=== PATIENT | female | born 1995 | race Caucasian/White ===

== ENCOUNTER 2019-04-22 13:23 | Outpatient (CLI) | payer BC, SELFPAY ==
--- NOTE | 2019-04-22 | XR_ITS ---
WS: [id number] Lumbar spine, 5 views including lateral views on flexion and extension, 04/22/2019 Clinical Data: WEAKNESS OF BOTH EXTREMITIES Comparison: None. Findings: No compression fractures or subluxation is seen. No disc space narrowing is seen. The transverse proc esses and SI joints are normal. No limitation of motion or subluxation on flexion or extension is seen. There are clips in the right upper quadrant from a cholecystectomy. There is a large amount of fecal material throughout the colon . XR/XR lumbar spine min 4V [id number] Impression: Negative the lumbar spine including no subluxation or limitation of motion on f lexion or extension.
--- NOTE | 2019-04-22 | XR_ITS ---
WS: [id number] Cervical spine, 5 views including flexion and extension lateral views, 04/22/2019 Clinical Data: WEAKNESS OF BOTH EXTREMITIES Comparison: Cervical spine x-ray, 07/15/2009 Findings: No compression fractures are seen. The disc heights are normal. There is no prevertebral so ft tissue swelling. The odontoid is unremarkable. The soft tissues of the neck and the lung apices ar e normal. No limitation of motion on flexion or extension could be seen. There was no subluxation. XR/XR cervical spine 4-5V [id number] Impression: Negative cervical spine including no limitation of motion or subluxation on fle xion or extension.
== END 2019-04-22 13:24 | disposition home or self-care (01) ==
LOC: RADOUTREAD 04-23 09:13
PROVIDERS: Family Provider Internal Medicine; PCP Internal Medicine; Referring Provider Internal Medicine; Visit Provider Internal Medicine
DX: R29.898 Other symptoms and signs involving the musculoskeletal system (principal)

== ENCOUNTER 2020-02-06 09:35 | Outpatient (CLI) | payer MEDICAID, BC, SELFPAY ==
[2020-02-06] VITALS (12 sets, daily range): BP systolic 115–125; BP diastolic 67–79; PULSE 76–94; RESP 16; TEMP 36; O2SAT 98–99; BMI 32.4
== END 2020-02-06 10:35 | disposition home or self-care (01) ==
LOC: OPOB 09:39 → OBGYN 09:40
PROVIDERS: Family Provider Internal Medicine; PCP Internal Medicine; Visit Provider Family Medicine
DX: O16.9 Unspecified maternal hypertension, unspecified trimester (principal); Z3A.00 Weeks of gestation of pregnancy not specified
CPT/HCPCS: 59025; 99211

== ENCOUNTER 2020-02-07 15:23 | Outpatient (CLI) | payer MEDICAID, SELFPAY ==
[2020-02-07] VITALS (20 sets, daily range): BP systolic 0–131; BP diastolic 0–87; PULSE 67–80; RESP 16–18; TEMP 36.6–37; BMI 31.9
[2020-02-07 17:25] LABS: Total Volume, Urine 1450 mL
[2020-02-07 19:33] LABS: Total Protein 24 Hour Urine 134.9 mg/24HR (0-150); Urine Total Protein 24 Hour 9.3 mg/dL (0-150)
== END 2020-02-07 19:29 | disposition home or self-care (01) ==
LOC: OPOB 15:23 → OBGYN 19:26
PROVIDERS: PCP Internal Medicine; Visit Provider Family Medicine
DX: O24.419 Gestational diabetes mellitus in pregnancy, unspecified control (principal); Z3A.00 Weeks of gestation of pregnancy not specified
CPT/HCPCS: 59025; 84156; 99211

== ENCOUNTER 2020-02-12 05:27 | Inpatient (IN) | payer MEDICAID, SELFPAY ==
[2020-02-12] VITALS (23 sets, daily range): BP systolic 104–140; BP diastolic 41–83; PULSE 83–113; RESP 14–18; TEMP 36.5–37.5; O2SAT 95–100; BMI 31.8
[2020-02-12 06:09] LABS: Basophils # 0.1 10^3/uL (0.0-0.1); Basophils % 0.8 %; Eosinophils % 0.3 %; Hematocrit 31.3 % (37.0-47.0); Hemoglobin 9.3 g/dL (11.5-15.3); Lymphocytes # 1.6 10^3/uL (0.8-4.8); Lymphocytes % 20.3 %; Mean Corpuscular HGB Conc 29.7 g/dL (30.0-36.0); Mean Corpuscular Hemoglobin 22.5 pg (28.0-34.0); Mean Corpuscular Volume 75.8 fL (81-99); Mean Platelet Volume 12.7 fL (7.4-10.4); Monocytes # 0.6 10^3/uL (0.2-0.9); Monocytes % 6.9 %; Neutrophils # 5.62 10^3/uL (1.8-7.7); Neutrophils % 70.3 %; Nucleated Red Blood Cells % 0 %; Platelet Count 191 10^3/cmm (130-400); Red Blood Count 4.13 10^6/uL (4.1-5.3)
[2020-02-12] MEDS: ondansetron 2 mg/ML SDV 2 mL 4 MG IVP (06:43)
[2020-02-12] MEDS: lactated ringers 1,000 ML 999 ML IV (06:43)
--- NOTE | 2020-02-12 07:17 | ANES.PREANE2 ---
Pre-Anesthetic Assessment Pre-Anesthetic Assessment: Height/Weight: Height 1.68 m Weight 89.358 kg Pulse Resp BP 83 18 120/75 02/12/20 07:01 02/12/20 05:51 02/12/20 07:01 Proposed Procedure: Operation Date: 02/12/20 07:30 Proposed Procedures p Section Repeat With Tubal(Not Applicable) - Kathryn Rivera MD Was Beta Tri taken within 24 hours: N/A Exam: Pre-Anes Outpt Exam: alert, oriented x 3, clear to auscultation bilaterally and regular rate & rhythm Airway: Submandibular: WNL Cervical ROM: WNL MP: 2 Dentition: Full History/ROS: No significant history except as noted and No significant complaints Pulmonary: Pulmonary: None reported CV/HEM: CV/HEM: None reported : : None reported Hepatic: Hepatic: None reported GI: Comments: Symptoms developed at 1 am N/V and diarrhea. No fever Metabolic: Metabolic: None reported Musc/skel: Musc/skel: None reported Neuropsych: Neuropsych: None reported Anesthetic Plan: ASA status: 2 Anesthesia: Regional (specify below) Risk of > 500 ml blood loss (7ml/kg in children): No PFSH Anesthesia PFSH: Social History (Updated 02/07/20 @ 17:06 by Lyudmila Juárez RN) Smoking and tobacco status: unknown if ever smoked Alcohol intake: unknown Female Reproductive History: : 4 Data Anesthesia CBC & Chem 7: 02/12/20 05:55 Other Labs: Laboratory Results - last 48 hr 02/12/20 05:55 WBC 8.0 RBC 4.13 Hgb 9.3 L Hct 31.3 L MCV 75.8 L MCH 22.5 L MCHC 29.7 L RDW 15.0 Plt Count 191 MPV 12.7 H Neut % (Auto) 70.3 Lymph % (Auto) 20.3 [place] % (Auto) 6.9 Eos % (Auto) 0.3 Baso % (Auto) 0.8 Neut # (Auto) 5.62 Lymph # (Auto) 1.6 [place] # (Auto) 0.6 Eos # (Auto) 0.0 Baso # (Auto) 0.1 Nucleated RBC % (auto) 0 Nucleated RBCs # 0.0 Cardiac Studies: No Data to Display
[2020-02-12] MEDS: metoclopramide 5 mg/mL SDV 2 mL 10 MG IVP (07:22)
[2020-02-12] MEDS: citric acid-sodium citrate 30 mL UDC PO (07:23)
[2020-02-12] MEDS: famotidine 20 mg/2 mL INJ IVP (07:23)
[2020-02-12 07:42] LABS: SARS Covid-2 Antigen Negative (Negative)
[2020-02-12] MEDS: diphenhydrAMINE 50 mg/mL SDV 1mL 25 MG IVP (11:33)
[2020-02-12] MEDS: ketorolac 30 mg/mL INJ IVP ×3 (11:34→22:26)
--- NOTE | 2020-02-12 12:00 | PM.OP ---
Operative Report Date of procedure: February 12, 2020 Pre-op Diagnosis: IUP at 39 weeks gestation History of prior section Desired permanent surgical sterilization Post-op diagnosis: same Procedure Done: Repeat low transverse section Via Pfannenstiel skin incision Bilateral tubal ligation Specimens removed/disposition: Vertex male infant weight 3160 g, Apgars 9 and 10. Segments of right and left fallopian tubes Pathology: Segments of right and left fallopian tubes Anesthesia: Other (Spinal) Estimated blood loss (mL): 400 IV fluids (mL): 1,500 Urine output (mL): 300 Complications: None Condition: stable Disposition: floor Procedure: After informed consent the patient was taken to the OR where she was administered spinal anesthesia. She was prepped and draped in normal sterile fashion in dorsal supine position with a left lateral tilt. She had a prior Pfannenstiel incision scar that was slightly keloid so this was removed. The incision was then carried down to the underlying layer of fascia sharply. The fascial incision was extended laterally using the Mayos. The fascia was then grasped with Anisa clamps and the underlying rectus muscles were dissected off taking care to avoid injury to the underlying tissue. The peritoneum was entered bluntly and the incision site was stretched manually. The bladder blade was inserted. The vesicouterine peritoneum was entered sharply using the Metzenbaums and the bladder flap was created digitally. The bladder blade was then reinserted. Uterine incision was made in a transverse fashion in the lower uterine segment. Amniotic rupture of membranes was performed using an Allis clamp and there was clear fluid. The was delivered atraumatically with bulb suction of the mouth and nares after delivery. The cord was clamped and cut and the was handed to the waiting pediatric nurse. Cord blood was obtained. The placenta was then delivered using fundal pressure. The uterus was then exteriorized from the abdomen and a dry sponge was used to clear the uterus of clots and debris. The uterine incision was then repaired using 0 chromic in a running locked fashion. A second layer of the same suture was used in an imbricating manner. There was excellent hemostasis. The right fallopian tube was then grasped with a Kacie and a proximal portion of the tube was ligated and excised. Specimen was sent to pathology. Ostia were identified. The cut portions of the tube were coagulated using the Bovie. The same procedure was then performed on the left side. Again ostia were identified and specimen was sent to pathology. The cut portions of the tube were coagulated using the Bovie. The uterus was then returned to the abdomen and irrigation was used to clear the gutters of clots and debris. The uterine incision was reinspected for hemostasis. The peritoneum was then reapproximated using 4-0 Vicryl in a running fashion. The subfascial tissue was inspected for hemostasis and any small bleeders were coagulated using the Bovie. The fascia was then reapproximated using 0 Vicryl in a running fashion. On the right aspect of the incision the subfascial tissue was loosened using the Bovie. There was some question about whether or not it affected the Vicryl knot with the fascia. For this reason another 0 Vicryl was used in a running manner from the right aspect of the incision taken to past the midline. The subcutaneous tissue was then irrigated and any small bleeders were coagulated using the Bovie. The subcutaneous tissue was then reapproximated using 4-0 Vicryl. The skin was then reapproximated using 4-0 Vicryl on a Abdi needle. Steri-Strips and a pressure bandage were applied. Patient went to recovery in stable condition. Sponge instrument and needle counts were correct Associated Problem List Diagnoses (1) with 39 completed weeks gestation: (2) History of section, low transverse: (3) Request for sterilization:
--- NOTE | 2020-02-12 12:10 | P.HP_ITS ---
Providers/Chief Complaint Admitting Physician: Kathryn Rivera MD Primary Care Provider: Marlon Moreno DO Chief Complaint: scheduled csection History of Present Illness Venice Persaud is a 24 year old female G3, P2 at 39 weeks gestation who is here for a scheduled repeat section and bilateral tubal ligation Review of Systems Const: Denies: fever(s), chills or body aches Eyes: Denies: change in vision or blurry vision ENMT: Denies: throat pain Card: Denies: chest pain or irregular heart rhythm Resp: Denies: dyspnea, productive cough or wheezing GI: Reports: vomiting (Started english language arts teacher hours she believes secondary to bad tacos), diarrhea and GI cramping; Denies: hematochezia : Denies: flank pain or difficulty voiding Neuro: Denies: headache(s) or sensory changes Psych: Denies: anxiety or depression Medications/Allergies Home Medications Medication Instructions Recorded Confirmed Last Taken Type Vitamin 1 tab PO DAILY 02/07/20 02/07/20 02/05/20 History ferrous sulfate [iron] 325 mg PO DAILY 02/07/20 02/07/20 02/05/20 History docusate sodium 100 mg PO BID #60 cap 02/14/20 Unknown Rx hydrocodone-acetaminophen 1 - 2 tab PO Q4H PRN #15 tab 02/14/20 Unknown Rx ibuprofen 800 mg PO TID PRN #30 tab 02/14/20 Unknown Rx Allergies Allergy/AdvReac Type Severity Reaction Status Date / Time clindamycin Allergy Unknown ADR-Vomitin Verified 02/07/20 17:02 g PFSH Acute PFSH: Social History (Updated 02/07/20 @ 17:06 by Lyudmila Juárez RN) Smoking and tobacco status: unknown if ever smoked Alcohol intake: unknown Female Reproductive History: : 4 Vitals/I&O/Wt Last Vital Signs Temp 98.2 F 02/12/20 10:55 Pulse 107 H 02/12/20 10:55 Resp 16 02/12/20 10:55 BP 114/77 02/12/20 10:55 Pulse Ox 100 02/12/20 10:55 02/11/20 02/12/20 02/12/20 22:59 06:59 14:59 Output Total 300 / 300 Balance -300 / -300 Weight last 48 hrs Weight 197 lb Weight 197 lb Physical Exam HENMT: COMMON NORMALS: normocephalic and atraumatic FACE & SINUS: normal facial exam Eye: COMMON NORMALS: Equal, round and reactive pupils present and EOMs intact bilaterally Chest: COMMONS NORMALS: normal inspection of the chest Resp: COMMON NORMALS: normal respiratory effort and No retractions Cardio: COMMON NORMALS: regular rate and regular rhythm GI: COMMON NORMALS: non-tender Extremity: COMMON NORMALS: no calf tenderness and no pedal edema Neuro: COMMON NORMALS: patient oriented x3 Psych: COMMON NORMALS: mental status grossly normal and Normal thought process present Urinary Catheter Management^: Ocampo Latex: Cath Placed During This Visit: yes Reason for Continuing Indwelling Catheter: Required Immobilization for Trauma or Surgery or Anesthesia Urinary Catheter Date of Insertion: 02/12/20 Urinary Catheter Time of Insertion: 07:55 Data : 02/12/20 22:30 A&P Assessment and plan (1) with 39 completed weeks gestation: Status: Acute (2) History of section, low transverse: We plan to proceed with repeat section Status: Resolved (3) Request for sterilization: Patient still desires bilateral tubal ligation Status: Resolved (4) Nausea vomiting and diarrhea: Patient has not had fever or cough however we need to consider this could be Covid symptoms. For that reason she will be taken to the OR downstairs and treated as if Covid positive. She did have a rapid Covid performed here this morning that was negative. Status: Resolved Attestations Medical Necessity Statement*: routine surgery and postoperative care Coding Level of Care Code Acute Process Steward for [facility] Fwd Exam Comprehensive Diagnoses with 39 completed weeks gestation Z3A.39 History of section, low transverse Z98.891 Request for sterilization Z30.2 Nausea vomiting and diarrhea R11.2; R19.7
[2020-02-12] MEDS: dextrose 5%-lactated ringers 1,000 ML 125 ML IV (14:07)
[2020-02-12] MEDS: sodium chloride 0.9% 500 ML 999 ML IV (15:49)
[2020-02-12] MEDS: ferrous sulfate EC 325 mg Tablet PO (17:26)
[2020-02-12 22:56] LABS: Hematocrit 25.3 % (37.0-47.0); Hemoglobin 7.6 g/dL (11.5-15.3); Mean Corpuscular Volume 76.4 fL (81-99); Mean Platelet Volume 13.6 fL (7.4-10.4); Platelet Count 137 10^3/cmm (130-400); Red Blood Count 3.31 10^6/uL (4.1-5.3); White Blood Count 5.9 10^3/uL (4.0-10.0)
[2020-02-13 04:06] VITALS: BP 107/67; PULSE 80; RESP 18; TEMP 37.1
[2020-02-13] MEDS: ketorolac 30 mg/mL INJ IVP (06:00)
[2020-02-13 06:40] LABS: Coronavirus Lab Test PTC Negative
[2020-02-13 06:47] VITALS: BP 110/70; PULSE 90; RESP 18
[2020-02-13] MEDS: ferrous sulfate EC 325 mg Tablet PO (08:53)
[2020-02-13] MEDS: prenatal vitamin Capsule 1 CAP PO (08:53)
[2020-02-13 08:55] VITALS: BP 105/69; PULSE 103; RESP 16; TEMP 36.9
--- NOTE | 2020-02-13 09:02 | ANE.PACU2 ---
Inpatient post-anesthesia follow up: Airway intact: Yes Vital signs: Temperature 98.8 F Pulse Rate 90 Respiratory Rate 18 Blood Pressure 110/70 Pulse Oximetry 96 Oxygen Delivery Me thod Room Air Oxygen Flow Rate Fraction of Inspir ed Oxygen Hydration adequate: Yes Nausea and vomiting: No Pain level: 2 Mental status: Baseline Additional Comments: No headaches, no signs of infection at neuraxial site, no residual numbness/weakness in legs, patient up and walking, urinating without hutson
[2020-02-13] MEDS: ibuprofen 800 mg tablet PO ×2 (16:08→21:30)
[2020-02-13 16:10] VITALS: BP 112/65; PULSE 96; RESP 16; TEMP 36.8
--- NOTE | 2020-02-13 17:19 | PM.PN ---
Subjective Subjective: Interval history: Postop day #1 repeat section with bilateral tubal ligation. The patient is doing well. She has only been taking ibuprofen pain medication. Vitals/I&O/Wt Last Vital Signs Temp 98.4 F 02/13/20 08:55 Pulse 103 H 02/13/20 08:55 Resp 16 02/13/20 08:55 BP 105/69 02/13/20 08:55 Pulse Ox 96 02/12/20 19:56 02/13/20 02/13/20 02/13/20 06:59 14:59 22:59 Intake Total 500 / 1260 Output Total 600 / 2990 900 / 900 Balance -100 / -1730 -900 / -900 Weight last 48 hrs Weight 197 lb Weight 197 lb Physical Exam HENMT: COMMON NORMALS: normocephalic and atraumatic HEAD & SCALP: normocephalic and atraumatic Eye: COMMON NORMALS: Equal, round and reactive pupils present PUPIL: Yes Equal, round and reactive pupils present Chest: COMMONS NORMALS: normal inspection of the chest Resp: COMMON NORMALS: clear to auscultation bilaterally AUSCULTATION: clear to auscultation bilaterally Cardio: COMMON NORMALS: regular rate and regular rhythm RATE: regular rate RHYTHM: regular rhythm GI: COMMON NORMALS: Normal to inspection, nondistended, normoactive bowel sounds present and Soft to palpation (Fundus firm U- 2) INSPECTION: Yes other (Incision clean dry and intact) PALPATION: Yes Soft to palpation (Fundus firm U- 2) and Yes Tenderness to palpation present (GI) (Minimal appropriate postoperative) Extremity: COMMON NORMALS: no calf tenderness GENERAL: Yes edema Urinary Catheter Management^: Ocampo Latex: Cath Placed During This Visit: yes, but has since been removed by the nurse Reason for Continuing Indwelling Catheter: Decision to DC Catheter Urinary Catheter Date of Insertion: 02/12/20 Urinary Catheter Time of Insertion: 07:55 Date Urinary Catheter Removed: 02/12/20 Time Urinary Catheter Discontinued: 22:46 Data : 02/12/20 22:30 A&P Assessment and plan (1) Status post repeat low transverse section: Routine postoperative care. Patient is doing well. Likely discharge home tomorrow. Status: Acute (2) History of bilateral tubal ligation: Status: Acute Attestations Medical Necessity Statement*: Routine postoperative care Coding Level of Care Code Acute Operational Trainer for [facility] Fwd Diagnoses Status post repeat low transverse section Z98.891 History of bilateral tubal ligation Z98.51
[2020-02-13 21:30] VITALS: BP 110/70; PULSE 88; RESP 16; TEMP 36.8
[2020-02-14 04:45] VITALS: BP 105/69; PULSE 78; RESP 16; TEMP 36.7; O2SAT 97
[2020-02-14] MEDS: docusate sodium 100 mg Capsule PO (09:04)
[2020-02-14] MEDS: ferrous sulfate EC 325 mg Tablet PO (09:04)
[2020-02-14] MEDS: prenatal vitamin Capsule 1 CAP PO (09:04)
[2020-02-14] MEDS: ibuprofen 800 mg tablet PO (09:04)
--- NOTE | 2020-02-14 10:46 | P.DS_ITS ---
Discharge Providers HANDBAG DESIGNER Date of Admission: 02/12/20 05:27 Date of Discharge: 02/14/20 Attending Provider at Admission: Kathryn Rivera MD Attending Provider at Discharge: Kathryn Rivera MD Primary Care Provider: Marlon Moreno DO Diagnoses at Discharge Discharge Diagnosis (1) Status post repeat low transverse section: Status: Acute (2) History of bilateral tubal ligation: Status: Acute Reason for Visit Reason for Visit: scheduled csection Hospital Course Hospital Course: This is a 24-year-old G4 now P3 who was admitted for repeat section and bilateral tubal ligation. There were no complications with the procedures. She did well postoperatively. She was ambulating, tolerating a regular diet, had good pain control on just ibuprofen and was comfortable with discharge home. Information Peripartum Data: Infant Delivery Method: Section Physical Exam Const: COMMON NORMALS: no acute distress HENMT: COMMON NORMALS: normocephalic HEAD & SCALP: normocephalic FACE & SINUS: normal facial exam Chest: COMMONS NORMALS: normal inspection of the chest Resp: COMMON NORMALS: normal respiratory effort and clear to auscultation bilaterally AUSCULTATION: clear to auscultation bilaterally Cardio: COMMON NORMALS: regular rate and regular rhythm RATE: regular rate RHYTHM: regular rhythm GI: COMMON NORMALS: Normal to inspection, nondistended, normoactive bowel sounds present and Soft to palpation PALPATION: Yes Soft to palpation and Yes Tenderness to palpation present (GI) (Minimal postoperative) Extremity: COMMON NORMALS: no calf tenderness GENERAL: No edema Urinary Catheter Management^: Ocampo Latex: Cath Placed During This Visit: yes, but has since been removed by the nurse Reason for Continuing Indwelling Catheter: Decision to DC Catheter Urinary Catheter Date of Insertion: 02/12/20 Urinary Catheter Time of Insertion: 07:55 Date Urinary Catheter Removed: 02/12/20 Time Urinary Catheter Discontinued: 22:46 Discharge Data Data Completed and Pending: Completed Studies During Hospitalization Category Date Time Status Pathology: Surgic al [PTH] Routine Pth 02/12/20 12:20 Completed Vitals: Last Vital Signs Temp 98.0 F 02/14/20 04:45 Pulse 78 02/14/20 04:45 Resp 16 02/14/20 04:45 BP 105/69 02/14/20 04:45 Pulse Ox 97 02/14/20 04:45 Discharge Plan Discharge Patient Disposition: Home Condition: Stable Prescriptions: New docusate sodium 100 mg Capsule 100 mg PO BID Qty: 60 RF: 0 ibuprofen 800 mg Tablet 800 mg PO TID PRN (Reason: Abdominal Discomfort) Qty: 30 RF: 0 hydrocodone-acetaminophen 5-325 mg Tablet 1 - 2 tab PO Q4H PRN (Reason: Moderate To Severe Pain) Qty: 15 RF: 0 Continued ferrous sulfate [iron] 325 mg (65 mg iron) Tablet 325 mg PO DAILY RF: 0 Vitamin 27 mg iron- 800 mcg Tablet 1 tab PO DAILY RF: 0 Discharge Orders: Discharge Order (Routine); Ordered 02/14/20 Ordered By: Kathryn Rivera Referrals: Kathryn Rivera MD [Physician] - 1-3 days (appt with ) Discharge Diet: Usual diet Discharge Activity: Limit activity as instructed Patient Instructions: Bleeding (DC), OB - Jonatan/Miguel, OB Discharge Report, OB Food/Drug Interaction Guide, OB Home Care, OB Proud Parent Packet Discharge Attestations HANDBAG DESIGNER Time Spent in Discharge Care*: less than 30 min Coding Level of Care Code Acute Instrumentation Specialist for [facility] Fwd Diagnoses Status post repeat low transverse section Z98.891 History of bilateral tubal ligation Z98.51
[2020-02-14 11:40] VITALS: BP 131/87; PULSE 91; RESP 17; TEMP 36.8
[2020-02-14 12:08] VITALS: BP 131/87; PULSE 91; RESP 17; TEMP 36.8
== END 2020-02-14 12:00 | disposition home or self-care (01) | DRG 785 ==
PROVIDERS: Admitting Provider Family Medicine; PCP Internal Medicine; Visit Provider Family Medicine
PROC: 0U570ZZ Destruction of Bilateral Fallopian Tubes, Open Approach (ICD-10-PCS; CPT 59514; principal; 2020-02-12 07:30)
DX: O34.211 Maternal care for low transverse scar from previous cesarean delivery (principal); Z3A.39 39 weeks gestation of pregnancy; Z37.0 Single live birth; O99.02 Anemia complicating childbirth; D50.9 Iron deficiency anemia, unspecified; O75.89 Other specified complications of labor and delivery; R11.2 Nausea with vomiting, unspecified; R19.7 Diarrhea, unspecified
CPT/HCPCS: 36415; 51702; 59409; 85025; 85027; 86850; 86900; 87426; 87635; 88302; 96375; J0690; J1200; J1885; J2274; J2370; J2405; J2765; J3010; J3490; J7040

== ENCOUNTER 2020-08-23 15:33 | Emergency (ER) | payer BC, MEDICAID, SELFPAY ==
[2020-08-23 15:54] VITALS: BP 119/81; PULSE 92; RESP 18; TEMP 37.1; O2SAT 100; BMI 29.9
--- NOTE | 2020-08-23 16:06 | ED_ITS ---
Documented by User: GARETH Borrego 08/24/20 07:08 HPI - General Adult General: Chief complaint: General Medical Stated complaint: HEADACHE, VOMITING, DIARRHEA Time Seen by Provider: 08/23/20 15:56 History of Present Illness: HPI narrative: 25-year-old female comes in today with cough, nasal congestion, and fever in the evenings since . Patient appears well. Patient appears no acute distress. Patient reports minimal to no improvement in symptoms. Patient was concerned for COVID-19. Patient works in a preschool. Onset (ago): day(s) Severity: mild Quality: dull Review of Systems General: Reports: 10 or more systems reviewed and unremarkable except in HPI and below Const: Reports: fever(s) ENMT: Reports: nasal congestion Resp: Reports: non-productive cough PFSH ED PFSH: Social History (Updated 02/07/20 @ 17:06 by Lyudmila Juárez RN) Smoking and tobacco status: unknown if ever smoked Alcohol intake: unknown Physical Exam Const: COMMON NORMALS: no acute distress and patient oriented x3 GENERAL APPEARANCE: cooperative HENMT: COMMON NORMALS: normocephalic, TM's normal bilaterally and Normal external nose present HEAD & SCALP: normal to inspection and normocephalic NOSE: Normal external nose present TYMPANIC MEMBRANE: TM's normal bilaterally MOUTH: Normal oral and palatal mucosa present THROAT: posterior oropharynx normal Eye: GENERAL EYE: appearance normal, both eyes and all related structures Neck/C-Spine: COMMON NORMALS: full ROM Lymph: LYMPHATIC: no lymphadenopathy noted Chest: COMMONS NORMALS: normal inspection of the chest Resp: COMMON NORMALS: normal respiratory effort and clear to auscultation bilaterally EFFORT & INSPECTION: Yes able to speak in complete sentences AUSCULTATION: clear to auscultation bilaterally Cardio: COMMON NORMALS: regular rate and regular rhythm RATE: regular rate RHYTHM: regular rhythm GI: COMMON NORMALS: non-tender Back/Pelvis: COMMON NORMALS: thoracic and lumbar spine normal to inspection Extremity: COMMON NORMALS: normal to inspection Neuro: COMMON NORMALS: patient oriented x3 and moves all extremities Psych: COMMON NORMALS: mental status grossly normal and cooperative Skin: COMMON NORMALS: no rashes or lesions noted GENERAL SKIN EXAM: no rashes or lesions noted Course ED course: 1699, reviewed with Jone Reyes, nurse practitioner, we are awaiting COVID-19 results. Patient has a viral upper respiratory infection illness for the last 3 days. 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 Stable continue care on my leave of shift. Vital Signs: Vital signs: Vital Signs Temperature 98.7 F 08/23/20 15:54 Pulse Rate 78 08/23/20 17:30 Respiratory Rate 18 08/23/20 17:30 Blood Pressure 119/81 08/23/20 15:54 Pulse Oximetry 98 08/23/20 17:30 MDM - General Adult MDM Narrative: Medical decision making narrative: Patient came in today with complaints of cough, nasal congestion, and fever at evening times. On exam we note posterior pharynx has some clear drainage, mild nasal mucosal swelling, lungs clear to auscultation, no lymphadenopathy. Differential diagnosis includes upper respiratory infection, viral syndrome, COVID-19. Lab Data: Labs: Lab Results 08/23/20 Range/Units 16:23 SARS-CoV-2 Ag (Rap id) Positive H (Negative) Discharge Plan Discharge Patient Disposition: Home Clinical Impression: COVID-19 Condition: Stable Prescriptions: No Action ferrous sulfate [iron] 325 mg (65 mg iron) Tablet 325 mg PO DAILY RF: 0 Vitamin 27 mg iron- 800 mcg Tablet 1 tab PO DAILY RF: 0 docusate sodium 100 mg Capsule 100 mg PO BID Qty: 60 RF: 0 ibuprofen 800 mg Tablet 800 mg PO TID PRN (Reason: Abdominal Discomfort) Qty: 30 RF: 0 hydrocodone-acetaminophen 5-325 mg Tablet 1 - 2 tab PO Q4H PRN (Reason: Moderate To Severe Pain) Qty: 15 RF: 0 Discharge Orders: Discharge ED (Routine); Ordered 08/23/20 Ordered By: Jone Reyes Referrals: Kathyrn Rivera MD [Primary Care Provider] - Discharge Diet: Usual diet Discharge Activity: Increase activity as tolerated Patient Instructions: Viral Syndrome (ED) Activity Restrictions/Additional Instructions: Self quarantine for 10 days from this past . Watch for signs and symptoms of worsening Covid. Monitor for acute shortness of breath dehydration or other related problems return to see your primary care provider return here i f worsening symptoms develop. Coding Level of Care Code ED Customer Service Attendant for [facility] Fwd Exam Comprehensive Documented by User: GARETH Lira 08/24/20 01:00 HPI - General Adult General: Chief complaint: General Medical Stated complaint: HEADACHE, VOMITING, DIARRHEA Time Seen by Provider: 08/23/20 15:56 PFSH ED PFSH: Social History (Updated 02/07/20 @ 17:06 by Lyudmila Juárez RN) Smoking and tobacco status: unknown if ever smoked Alcohol intake: unknown Course Vital Signs: Vital signs: Vital Signs Temperature 98.7 F 08/23/20 15:54 Pulse Rate 78 08/23/20 17:30 Respiratory Rate 18 08/23/20 17:30 Blood Pressure 119/81 08/23/20 15:54 Pulse Oximetry 98 08/23/20 17:30 MDM - General Adult MDM Narrative: Medical decision making narrative: Patient diagnosed with Covid. Patient self quarantine follow back up if she has any problems. Lab Data: Labs: Lab Results 08/23/20 Range/Units 16:23 SARS-CoV-2 Ag (Rap id) Positive H (Negative) Discharge Plan Discharge Patient Disposition: Home Clinical Impression: COVID-19 Condition: Stable Prescriptions: No Action ferrous sulfate [iron] 325 mg (65 mg iron) Tablet 325 mg PO DAILY RF: 0 Vitamin 27 mg iron- 800 mcg Tablet 1 tab PO DAILY RF: 0 docusate sodium 100 mg Capsule 100 mg PO BID Qty: 60 RF: 0 ibuprofen 800 mg Tablet 800 mg PO TID PRN (Reason: Abdominal Discomfort) Qty: 30 RF: 0 hydrocodone-acetaminophen 5-325 mg Tablet 1 - 2 tab PO Q4H PRN (Reason: Moderate To Severe Pain) Qty: 15 RF: 0 Discharge Orders: Discharge ED (Routine); Ordered 08/23/20 Ordered By: Jone Reyes Referrals: Kathryn Rivera MD [Primary Care Provider] - Discharge Diet: Usual diet Discharge Activity: Increase activity as tolerated Patient Instructions: Viral Syndrome (ED) Activity Restrictions/Additional Instructions: Self quarantine for 10 days from this past . Watch for signs and symptoms of worsening Covid. Monitor for acute shortness of breath dehydration or other related problems return to see your primary care provider return here if worsening symptoms develop. Coding Level of Care Code ED Customer Service Attendant for [facility] Exam Comprehensive
[2020-08-23 17:03] LABS: SARS Covid-2 Antigen Positive (Negative)
[2020-08-23 17:30] VITALS: PULSE 78; RESP 18; O2SAT 98
== END 2020-08-23 17:31 | disposition home or self-care (01) ==
PROVIDERS: Nurse Practitioner Family; Emergency Provider Nurse Practitioner Family; PCP Family Medicine
DX: U07.1 COVID-19 (principal)
CPT/HCPCS: 87426; 99282

== ENCOUNTER 2021-02-11 15:50 | Emergency (ER) | payer BC, MEDICAID, SELFPAY ==
[2021-02-11 17:19] VITALS: BP 131/87; PULSE 66; RESP 18; TEMP 36.7; O2SAT 100; BMI 23.3
[2021-02-11 19:06] LABS: Add Urine Microscopic? YES; Blood Urine 2+ (Negative); Glucose Urine UA Norm (Normal); Ketones Urine 2+ (Negative); Leukocyte Esterase Urine 1+ (Negative); Nitrate Urine Positive (Negative); Protein Urine 3+ (Negative); Urine Appearance Cloudy (CLEAR); pH Urine 5 (5-7)
[2021-02-11 19:08] LABS: RBC Urine 0-4 /hpf (0-2); Urine Color Orange (Yellow)
[2021-02-11 19:09] LABS: Add Urine Culture? Yes; Bacteria Urine 4+ /hpf; Squamous Epithelial Cell Urine 0-4 /hpf (0-5); WBC Urine TOO NUMEROUS TO CNT /hpf (0-5)
[2021-02-11] MEDS: cefTRIAXone 1,000 MG in sodium chloride 0.9% (plus) 50 ML 100 MG IV (21:10)
[2021-02-11 21:15] VITALS: BP 127/81; PULSE 67; RESP 16; O2SAT 100
--- NOTE | 2021-02-11 21:16 | PC.NURSE ---
Given water and sandwich for po challenge.
[2021-02-11 21:30] LABS: HCG, Serum Qual Negative (Negative)
[2021-02-11 21:32] LABS: Alanine Aminotransferase 8 U/L (0-33); Albumin Level 4.4 g/dL (3.5-5.2); Alkaline Phosphatase 73 IU/L (35-105); Anion Gap 14.1 (5-19); Aspartate Amino Transferase 12 U/L (0-32); Blood Urea Nitrogen 8 mg/dL (6-20); Calcium 9.2 mg/dL (8.5-10.5); Carbon Dioxide 25 mmol/L (22-29); Chloride 104 mmol/L (98-107); Globulin 2.7 g/dL (1.3-4.6); Glucose 73 mg/dL (65-115); Osmolality Calculated 287 mOsm/kg (285-295); Potassium 3.1 mmol/L (3.5-5.1); Sodium 140 mmol/L (136-145); Total Bilirubin 0.3 mg/dL (0.15-1.2); Total Protein 7.1 g/dL (6.6-8.7)
[2021-02-11 21:34] LABS: Basophils # 0.1 10^3/uL (0.0-0.1); Basophils % 0.9 %; Eosinophils # 0.1 10^3/uL (0.0-0.8); Hematocrit 34.3 % (37.0-47.0); Hemoglobin 10.2 g/dL (11.5-15.3); Lymphocytes # 2.7 10^3/uL (0.8-4.8); Lymphocytes % 40.2 %; Mean Corpuscular HGB Conc 29.7 g/dL (30.0-36.0); Mean Corpuscular Hemoglobin 22.6 pg (28.0-34.0); Mean Corpuscular Volume 76.1 fl (81-99); Mean Platelet Volume 12.6 fL (7.4-10.4); Monocytes # 0.5 10^3/uL (0.2-0.9); Monocytes % 6.7 %; Neutrophils # 3.45 10^3/uL (1.8-7.7); Neutrophils % 51.1 %; Nucleated Red Blood Cells % 0 %; Platelet Count 215 10^3/cmm (130-400); Red Blood Count 4.51 10^6/uL (4.1-5.3); Red Cell Distribution Width 17.2 % (12.1-15.1); White Blood Count 6.8 10^3/uL (4.0-10.0)
--- NOTE | 2021-02-11 21:34 | ED_ITS ---
HPI - General Adult General: Chief complaint: Urogenital-Female Stated complaint: LOW BACK PAIN, PAINFUL URINATION, LIMITED OUTPUT Time Seen by Provider: 02/11/21 20:41 History of Present Illness: HPI narrative: CC: Dysuria/flank pain HPI: [25] yo patient w/ hx of UTI, cholecystectomy presenting to the ED w/ symptoms of dysuria x 3 day now with b/l sided flank pain. Had mild gross hematuria on day 1. Patient is concerned that she is having kidney infectsion from her UTI. Patient denies nausea/vomiting, and fever. Patient has been able to tolerate Po today. Denies hx of pyelonephritis in the past. No hx of kidney stones. Patient denies diarrhea/melena/hematochezia, vaginal discharge/bleeding/ or cramps. No associated hx of kidney stones. Denies chest pain, SOB, and palpitations today. Onset: 3 days ago Duration: ongoing Location: home Severity: moderate Review of Systems Narrative: Constitutional: No fever, no chills. HEENT: No vision changes CV: No chest pain, no palpitations PULM: No productive cough, no dyspnea. GI: No abdominal pain, +N/+V/-D, +b/l flank pain. : +Dysuria/+hematuria MSKEL: No muscle pain SKIN: No new rashes, no lesions. NEURO: No headache, no focal weakness. HEME: No visible bruises PSYCH: Normal mood PFSH ED PFSH: Social History (Updated 02/07/20 @ 17:06 by Lyudmila Juárez RN) Smoking and tobacco status: unknown if ever smoked Alcohol intake: unknown Physical Exam Narrative: EXAM NARRATIVE: Head: Atraumatic Eyes: PERRL, conjunctiva without injection, eyes tracking ENT: Mucous membrane moist NECK: Supple without lymphadenopathy LUNGS: LCTAB CV: RRR ABDOMEN: Soft, L > R-sided flank tenderness, no guarding or rebound tenderness, no raymundo?s sign, no rovsing/mcburney/obturator signs EXTREMITY: Normal ROM SKIN: No rash or erythema NEURO: Awake and alert. No focal weakness PSYCH: Cooperative mood and affect Course Vital Signs: Vital signs: Vital Signs Temperature 98.1 F 02/11/21 17:19 Pulse Rate 67 02/11/21 21:15 Respiratory Rate 16 02/11/21 21:15 Blood Pressure 127/81 02/11/21 21:15 Pulse Oximetry 100 02/11/21 21:15 MDM - General Adult MDM Narrative: Medical decision making narrative: [25]yo patient w/ hx of UTI, cholecystectomy presenting with dysuria/ mild b/lflank pain. -N/-V, and fever. On exam has mild b/l flank tenderness consistent with possible mild/early pyelonephritis. No suspicion for perinephric abscess. Unlikely Infected Urolithiasis, AAA, cholecystitis, pancreatitis, SBO, appendicitis, or other acute abdomen. Workup: CBC, CMP, Lipase, UA reflex Urine culture Interventions: IV ceftriaxone 1g and PO challenge Lab findings: WBC wnl, UA positive for UTI, urine culture sent. There is 2+ gross blood in the urine, no microscopic blood and patient has no renal stone hx in the past (normal Cr), I do not suspected infected obstructive stone at this time. Rx: Cefpodoxime 200mg PO BID x 10 days, zofran 4mg ODT PRN vomiting Disposition: Discharge. Patient is given strict return precautions for any per sistent fever, flank pain, intractable vomiting, inability to tolerate PO or any new or concerning issues. Patient reassures me and reiterates the plan to follow up with PCP in 24-48 hrs. Lab Data: Labs: Lab Results 02/11/21 02/11/21 02/11/21 18:40 21:05 21:05 WBC 6.8 10^3/uL 10^3/ uL (4.0-10.0) RBC 4.51 10^6/uL 10^6 /uL (4.1-5.3) Hgb 10.2 g/dL L g/dL (11.5-15.3) Hct 34.3 % L % (37.0-47.0) MCV 76.1 fl L fl (81-99) MCH 22.6 pg L pg (28.0-34.0) MCHC 29.7 g/dL L g/dL (30.0-36.0) RDW 17.2 % H % (12.1-15.1) Plt Count 215 10^3/cmm 10^3 /cmm (130-400) MPV 12.6 fL H fL (7.4-10.4) Neut % (Auto) 51.1 % % Lymph % (Auto) 40.2 % % [place] % (Auto) 6.7 % % Eos % (Auto) 1.0 % % Baso % (Auto) 0.9 % % Neut # (Auto) 3.45 10^3/uL 10^3 /uL (1.8-7.7) Lymph # (Auto) 2.7 10^3/uL 10^3/ uL (0.8-4.8) [place] # (Auto) 0.5 10^3/uL 10^3/ uL (0.2-0.9) Eos # (Auto) 0.1 10^3/uL 10^3/ uL (0.0-0.8) Baso # (Auto) 0.1 10^3/uL 10^3/ uL (0.0-0.1) Nucleated RBC % (a uto) 0 % % Nucleated RBCs # 0.0 /100WBC /100W BC Sodium 140 mmol/L mmol/L (136-145) Potassium 3.1 mmol/L L mmol /L (3.5-5.1) Chloride 104 mmol/L mmol/L (98-107) Carbon Dioxide 25 mmol/L mmol/L (22-29) Anion Gap 14.1 (5-19) BUN 8 mg/dL mg/dL (6-20) Creatinine 0.5 mg/dL mg/dL (0.5-0.9) GFR Calculation 148.0 mL/min H mL /min (90-130) Glucose 73 mg/dL mg/dL (65-115) Calculated Osmolal ity 287 mOsm/kg mOsm/ kg (285-295) Calcium 9.2 mg/dL mg/dL (8.5-10.5) Total Bilirubin 0.3 mg/dL mg/dL (0.15-1.2) AST 12 U/L U/L (0-32) ALT 8 U/L U/L (0-33) Alkaline Phosphata se 73 IU/L IU/L (35-105) Total Protein 7.1 g/dL g/dL (6.6-8.7) Albumin 4.4 g/dL g/dL (3.5-5.2) Globulin 2.7 g/dL g/dL (1.3-4.6) HCG, Qual Urine Color [place] (Yellow) Urine Appearance Cloudy (CLEAR) Urine pH 5 (5-7) Ur Specific [place]it y 1.020 (1.005-1.030) Urine Protein 3+ H (Negative) Urine Glucose (UA) Norm (Normal) Urine Ketones 2+ H (Negative) Urine Blood 2+ H (Negative) Urine Nitrate Positive H (Negative) Urine Bilirubin Not Reportable Urine Urobilinogen Not Reportable Ur Leukocyte Yana ase 1+ H (Negative) Urine RBC 0-4 /hpf H /hpf (0-2) Urine WBC Too numerous to c nt /hpf H /hpf (0-5) Ur Squamous Epith Cells 0-4 /hpf H /hpf (0-5) Amorphous Sediment Not Reportable Urine Bacteria 4+ /hpf H /hpf (NONE) 02/11/21 21:05 WBC RBC Hgb Hct MCV MCH MCHC RDW Plt Count MPV Neut % (Auto) Lymph % (Auto) [place] % (Auto) Eos % (Auto) Baso % (Auto) Neut # (Auto) Lymph # (Auto) [place] # (Auto) Eos # (Auto) Baso # (Auto) Nucleated RBC % (a uto) Nucleated RBCs # Sodium Potassium Chloride Carbon Dioxide Anion Gap BUN Creatinine GFR Calculation Glucose Calculated Osmolal ity Calcium Total Bilirubin AST ALT Alkaline Phosphata se Total Protein Albumin Globulin HCG, Qual Negative (Negative) Urine Color Urine Appearance Urine pH Ur Specific Gravit y Urine Protein Urine Glucose (UA) Urine Ketones Urine Blood Urine Nitrate Urine Bilirubin Urine Urobilinogen Ur Leukocyte Yana ase Urine RBC Urine WBC Ur Squamous Epith Cells Amorphous Sediment Urine Bacteria Discharge Plan Discharge Patient Disposition: Home Clinical Impression: Pyelonephritis Condition: Stable Prescriptions: New cefpodoxime 200 mg tablet 200 mg PO BID 10 Days Qty: 20 RF: 0 Zofran 4 mg tablet 4 mg PO Q8H PRN (Reason: nausea and vomiting) 4 Days Qty: 12 RF: 0 No Action ferrous sulfate [iron] 325 mg (65 mg iron) Tablet 325 mg PO DAILY RF: 0 Vitamin 27 mg iron- 800 mcg Tablet 1 tab PO DAILY RF: 0 docusate sodium 100 mg Capsule 100 mg PO BID Qty: 60 RF: 0 ibuprofen 800 mg Tablet 800 mg PO TID PRN (Reason: Abdominal Discomfort) Qty: 30 RF: 0 hydrocodone-acetaminophen 5-325 mg Tablet 1 - 2 tab PO Q4H PRN (Reason: Moderate To Severe Pain) Qty: 15 RF: 0 Discharge Orders: Discharge ED (Routine); Ordered 02/11/21 Ordered By: Catalina Warren Referrals: Kathryn Rivera MD [Primary Care Provider] - Discharge Diet: Advance as tolerated Discharge Activity: Resume usual activity Patient Instructions: Kidney Infection (ED) Activity Restrictions/Additional Instructions: Please follow-up with your primary care provider for further evaluation of your symptoms. Please take your antibiotics as instructed. Please take your nausea medicine as instructed if you are experiencing nausea or vomiting. Come back to the emergency room if you have any worsening fever, nausea vomiting, flank pain, inability to take your medicine, or any new or concerning complaints. Coding Level of Care Code ED Anesthesiologist And Critical Care for [facility]
[2021-02-11 22:03] VITALS: BP 124/80; PULSE 70; RESP 16; O2SAT 100
== END 2021-02-11 22:04 | disposition home or self-care (01) ==
PROVIDERS: Physician Assistant; Emergency Provider Emergency Medicine; PCP Family Medicine
DX: N12 Tubulo-interstitial nephritis, not specified as acute or chronic (principal)
CPT/HCPCS: 80053; 81001; 84703; 85025; 87077; 87086; 87186; 96365; 99284; J0696

== ENCOUNTER → 2021-03-02 11:21 | Outpatient (BNVA) | payer OTHER, SELFPAY | PROVIDERS: PCP Family Medicine; Visit Provider Registered Nurse Neonatal Intensive Care | DX: N39.0 Urinary tract infection, site not specified (principal) | CPT/HCPCS: 81000 ==

== ENCOUNTER 2021-08-21 11:07 | Emergency (ER) | payer OTHER, BC, SELFPAY ==
[2021-08-21 11:13] VITALS: BP 81/54; PULSE 115; RESP 16; TEMP 36.4; O2SAT 100
[2021-08-21 11:39] VITALS: BP 112/72; PULSE 105; RESP 15; O2SAT 96
[2021-08-21 11:42] LABS: Basophils % 0.6 %; Hemoglobin 12.3 g/dL (11.5-15.3); Lymphocytes # 0.6 10^3/uL (0.8-4.8); Lymphocytes % 12.2 %; Mean Corpuscular HGB Conc 30.8 g/dL (30.0-36.0); Mean Corpuscular Hemoglobin 24.7 pg (28.0-34.0); Mean Corpuscular Volume 80.5 fl (81-99); Monocytes # 0.6 10^3/uL (0.2-0.9); Neutrophils # 3.92 10^3/uL (1.8-7.7); Nucleated Red Blood Cells % 0 %; Platelet Count 196 10^3/cmm (130-400); Red Blood Count 4.97 10^6/uL (4.1-5.3); Red Cell Distribution Width 16.7 % (12.1-15.1); White Blood Count 5.2 10^3/uL (4.0-10.0)
[2021-08-21 11:54] LABS: Add Urine Microscopic? YES; Bilirubin Urine 1+ (Negative); Blood Urine 2+ (Negative); Glucose Urine UA Norm (Normal); Ketones Urine 1+ (Negative); Leukocyte Esterase Urine Negative (Negative); Nitrate Urine Negative (Negative); Protein Urine 1+ (Negative); Urine Appearance Clear (CLEAR); Urine Color Dark Yellow (Yellow); Urobilinogen Urine 1 mg/dL (Negative); pH Urine 5 (5-7)
[2021-08-21 12:00] LABS: Alanine Aminotransferase 38 U/L (0-33); Albumin Level 4.4 g/dL (3.5-5.2); Alkaline Phosphatase 94 IU/L (35-105); Anion Gap 15.5 (5-19); Aspartate Amino Transferase 24 U/L (0-32); Blood Urea Nitrogen 12 mg/dL (6-20); Calcium 9.5 mg/dL (8.5-10.5); Carbon Dioxide 22 mmol/L (22-29); Chloride 101 mmol/L (98-107); Globulin 2.5 g/dL (1.3-4.6); Glomerular Filtration Rate 85.4 mL/min (90-130); Glucose 109 mg/dL (65-115); Lipase 23 U/L (13-60); Osmolality Calculated 280 mOsm/kg (285-295); Potassium 3.5 mmol/L (3.5-5.1); Sodium 135 mmol/L (136-145); Total Bilirubin 0.3 mg/dL (0.15-1.2); Total Protein 6.9 g/dL (6.6-8.7)
[2021-08-21 12:03] LABS: Bacteria Urine TRACE /hpf; Mucus Urine 2+ /hpf; RBC Urine RARE /hpf (0-2); Squamous Epithelial Cell Urine 0-4 /hpf (0-5)
[2021-08-21 12:04] LABS: Add Urine Culture? No
--- NOTE | 2021-08-21 12:13 | W.ED.NAVMDI ---
HPI - Nausea/Vomiting/Diarrhea General: Chief complaint: Nausea/Vomiting/Diarrhea Stated complaint: N/V; diarrhea Time Seen by Provider: 08/21/21 11:25 Source: patient Mode of arrival: ambulatory Limitations: no limitations History of Present Illness: 26-year-old female presents emergency room with complaints of nausea and vomiting and diarrhea for the last 2 days. Temp up to 102 night into yesterday morning. Not had any hematochezia melena hematemesis or coffee-ground emesis abdominal discomfort is diffuse. Nausea has improved some. She states she is not been able to keep food or fluids down. No dysuria urgency or frequency. MD elicited complaint: nausea, vomiting, diarrhea and abdominal pain Onset (ago): day(s) (2) Description of vomiting: food contents and bilious Associated nausea: Yes Associated abdominal pain: Yes Location of pain: Diffuse Pain consistency: intermittent Severity: mild Quality: cramping Exacerbating factors: eating Relieving factors: none Associated symtoms: Reports anorexia, malaise and nausea; Denies altered mental status, anxiety, bloating, change in vision, chest pain, cough, diaphoresis, decreased urine output, dizziness, dysuria, epistaxis, fatigue, fecal incontinence, fevers/chills, headache(s), myalgias, numbness, palpitations, rash, short of breath, syncope, tenesmus, tinnitus or weakness Treatment prior to arrival: other (Pepto-Bismol) Review of Systems Const: Reports: fever(s), chills, change in appetite and malaise; Denies: body aches, fatigue or diaphoresis Eyes: Denies: change in vision ENMT: Denies: throat pain, tinnitus or epistaxis Card: Denies: chest pain, palpitations, edema, swelling of feet/ankles or syncope Resp: Denies: dyspnea, productive cough or non-productive cough GI: Reports: abdominal pain, nausea and vomiting; Denies: bloating or fecal incontinence : Denies: flank pain, difficulty voiding, dysuria, urinary frequency or urinary urgency Musc: Denies: neck pain Skin/Breast: Denies: rash or pruritus Neuro: Denies: headache(s) or dizziness Psych: Denies: anxiety Endo: Denies: polyuria, polydipsia or tired all the time [facility] ED PFSH: Medical History delivery delivered Surgical History History of bilateral tubal ligation Status post repeat low transverse section Social History Smoking and tobacco status: never smoked Alcohol intake: unknown Physical Exam Const: COMMON NORMALS: no acute distress EXAM LIMITATIONS: no altered mental status GENERAL APPEARANCE: cooperative and comfortable ORIENTATION/CONSCIOUSNESS: Yes awake, Yes oriented to person, Yes oriented to place and Yes oriented to time HENMT: COMMON NORMALS: normocephalic, atraumatic and hearing grossly normal bilaterally HEAD & SCALP: normocephalic and atraumatic Neck/C-Spine: COMMON NORMALS: no JVD Resp: COMMON NORMALS: normal respiratory effort, No retractions, No use of accessory muscles and clear to auscultation bilaterally AUSCULTATION: clear to auscultation bilaterally Cardio: COMMON NORMALS: no JVD, regular rate, regular rhythm and No murmurs present (Cardio) RATE: regular rate RHYTHM: regular rhythm GI: COMMON NORMALS: No hepatosplenomegaly present AUSCULTATION: Yes normoactive bowel sounds PALPATION: Yes Tenderness to palpation present (GI) (Diffuse no peritoneal signs), No Guarding due to palpation present (GI) and Yes No hepatosplenomegaly present Extremity: COMMON NORMALS: normal to inspection, capillary refill normal, no clubbing, cyanosis or edema, no calf tenderness and no pedal edema Neuro: SENSORIUM/ORIENTATION: Yes oriented to person, Yes oriented to place and Yes oriented to time Skin: COMMON NORMALS: no rashes or lesions noted GENERAL SKIN EXAM: no rashes or lesions noted Course Vital Signs: Vital signs: Vital Signs Temperature 97.6 F 08/21/21 11:13 Pulse Rate 73 08/21/21 14:38 Respiratory Rate 18 08/21/21 14:38 Blood Pressure 111/58 08/21/21 14:38 Pulse Oximetry 97 08/21/21 14:38 MDM - Nausea/Vomiting/Diarrhea Medical Decision Making Labs reviewed and discussed with patient. There is no sign of acute abdomen she is feeling somewhat better after antiemetics and fluids. Will discharge home clear liquid diet antiemetics follow-up as needed return if has further problems. Medical Records I reviewed the patient's medical records. Lab Data I reviewed the patient's lab results. : 08/21/21 11:35 08/21/21 11:35 Laboratory Results WBC 5.2 10^3/uL (4.0-10.0) 08/21/21 11:35 RBC 4.97 10^6/uL (4.1-5.3) 08/21/21 11:35 Hgb 12.3 g/dL (11.5-15.3) 08/21/21 11:35 Hct 40.0 % (37.0-47.0) 08/21/21 11:35 MCV 80.5 fl (81-99) L 08/21/21 11:35 MCH 24.7 pg (28.0-34.0) L 08/21/21 11:35 MCHC 30.8 g/dL (30.0-36.0) 08/21/21 11:35 RDW 16.7 % (12.1-15.1) H 08/21/21 11:35 Plt Count 196 10^3/cmm (130-400) 08/21/21 11:35 MPV 12.0 fL (7.4-10.4) H 08/21/21 11:35 Neut % (Auto) 76.0 % 08/21/21 11:35 Lymph % (Auto) 12.2 % 08/21/21 11:35 [place] % (Auto) 11.0 % 08/21/21 11:35 Eos % (Auto) 0.0 % 08/21/21 11:35 Baso % (Auto) 0.6 % 08/21/21 11:35 Neut # (Auto) 3.92 10^3/uL (1.8-7.7) 08/21/21 11:35 Lymph # (Auto) 0.6 10^3/uL (0.8-4.8) L 08/21/21 11:35 [place] # (Auto) 0.6 10^3/uL (0.2-0.9) 08/21/21 11:35 Eos # (Auto) 0.0 10^3/uL (0.0-0.8) 08/21/21 11:35 Baso # (Auto) 0.0 10^3/uL (0.0-0.1) 08/21/21 11:35 Nucleated RBC % (auto) 0 % 08/21/21 11:35 Nucleated RBCs # 0.0 /100WBC 08/21/21 11:35 Sodium 135 mmol/L (136-145) L 08/21/21 11:35 Potassium 3.5 mmol/L (3.5-5.1) 08/21/21 11:35 Chloride 101 mmol/L (98-107) 08/21/21 11:35 Carbon Dioxide 22 mmol/L (22-29) 08/21/21 11:35 Anion Gap 15.5 (5-19) 08/21/21 11:35 BUN 12 mg/dL (6-20) 08/21/21 11:35 Creatinine 0.8 mg/dL (0.5-0.9) 08/21/21 11:35 GFR Calculation 85.4 mL/min (90-130) L 08/21/21 11:35 Glucose 109 mg/dL (65-115) 08/21/21 11:35 Calculated Osmolality 280 mOsm/kg (285-295) L 08/21/21 11:35 Calcium 9.5 mg/dL (8.5-10.5) 08/21/21 11:35 Total Bilirubin 0.3 mg/dL (0.15-1.2) 08/21/21 11:35 AST 24 U/L (0-32) 08/21/21 11:35 ALT 38 U/L (0-33) H 08/21/21 11:35 Alkaline Phosphatase 94 IU/L (35-105) 08/21/21 11:35 Total Protein 6.9 g/dL (6.6-8.7) 08/21/21 11:35 Albumin 4.4 g/dL (3.5-5.2) 08/21/21 11:35 Globulin 2.5 g/dL (1.3-4.6) 08/21/21 11:35 Lipase 23 U/L (13-60) 08/21/21 11:35 Urine Color Dark yellow (Yellow) 08/21/21 11:40 Urine Appearance Clear (CLEAR) 08/21/21 11:40 Urine pH 5 (5-7) 08/21/21 11:40 Ur Specific [place] 1.020 (1.005-1.030) 08/21/21 11:40 Urine Protein 1+ (Negative) H 08/21/21 11:40 Urine Glucose (UA) Norm (Normal) 08/21/21 11:40 Urine Ketones 1+ (Negative) H 08/21/21 11:40 Urine Blood 2+ (Negative) H 08/21/21 11:40 Urine Nitrate Negative (Negative) 08/21/21 11:40 Urine Bilirubin 1+ (Negative) H 08/21/21 11:40 Urine Urobilinogen 1 mg/dL (Negative) H 08/21/21 11:40 Ur Leukocyte Esterase Negative (Negative) 08/21/21 11:40 Urine RBC Rare /hpf (0-2) 08/21/21 11:40 Urine WBC 5-10 /hpf (0-5) H 08/21/21 11:40 Ur Squamous Epith Cells 0-4 /hpf (0-5) H 08/21/21 11:40 Amorphous Sediment Not Reportable 08/21/21 11:40 Urine Bacteria Trace /hpf (NONE) 08/21/21 11:40 Urine Mucus 2+ /hpf 08/21/21 11:40 Urine HCG, Qual Negative (Negative) 08/21/21 11:40 Discharge Plan Discharge Patient Disposition: Home Clinical Impression: Gastroenteritis, Cystitis Condition: Stable Prescriptions: New promethazine 25 mg tablet 25 mg PO Q6H PRN (Reason: nausea and vomiting) Qty: 20 0RF Cipro 250 mg tablet 250 mg PO BID Qty: 6 0RF No Action ondansetron 4 mg tablet,disintegrating 4 mg PO Q8H 5 Days Qty: 15 0RF Discharge Orders: Discharge ED (Routine); Ordered 08/21/21 Ordered By: Rashad Patel Referrals: Kathryn Rivera MD [Primary Care Provider] - Discharge Diet: Clear Liquid Patient Instructions: Opioid Safety Activity Restrictions/Additional Instructions: Clear liquid diet for 24 to 48 hours then advance as tolerated. Start oral antibiotics tomorrow. Antiemetics as needed. Coding Level of Care Code ED Tissue Coordinator for Sandoval Ramirez
[2021-08-21] MEDS: sodium chloride 0.9% 1,000 ML 999 ML IV ×2 (12:22→13:30)
[2021-08-21] MEDS: ondansetron 2 mg/ML SDV 2 mL 4 MG IVP (12:22)
[2021-08-21 12:26] VITALS: BP 117/73; PULSE 94; O2SAT 100
[2021-08-21] MEDS: cefTRIAXone 1,000 MG in sodium chloride 0.9% (plus) 100 ML 200 MG IV (12:45)
--- NOTE | 2021-08-21 12:45 | PC.NURSE ---
Patient up for discharge, medication and fluids still infusing. Patient notified of plan of care, patient with d/c after medication and fluids finish. IV fluids running well at this time.
[2021-08-21 13:58] VITALS: BP 100/74; PULSE 84; RESP 17; O2SAT 100
--- NOTE | 2021-08-21 14:02 | PC.NURSE ---
Rocephin infusion complete.
[2021-08-21 14:38] VITALS: BP 111/58; PULSE 73; RESP 18; O2SAT 97
== END 2021-08-21 14:40 | disposition home or self-care (01) ==
PROVIDERS: Emergency Medicine; Emergency Provider Family Medicine; PCP Family Medicine
DX: K52.9 Noninfective gastroenteritis and colitis, unspecified (principal)
CPT/HCPCS: 80053; 81001; 81025; 83690; 85025; 96361; 96365; 96375; 99284; J0696; J2405; J7030

== ENCOUNTER → 2023-03-13 12:42 | Outpatient (BNVA) | payer OTHER, BC, SELFPAY | PROVIDERS: PCP Family Medicine; Visit Provider Registered Nurse Neonatal Intensive Care | DX: J02.9 Acute pharyngitis, unspecified (principal) | CPT/HCPCS: 87880 ==

== ENCOUNTER 2023-06-08 09:52 | Emergency (ER) | payer BC, MEDICAID, SELFPAY ==
--- NOTE | 2023-06-08 09:57 | XR_ITS ---
WS: [id number] Examination: XR wrist RT min 3V* [id number] Reason for Exam: trauma Date: 06/08/2023 Comparison: 10/31/2009 Findings: There is no significant soft tissue swelling. The bone density and the joint spaces are maintained. There is no evidence of acute fracture or dislocation. What may represent old deformity of the fifth metacarpal is identified. Impression: There is no displaced fracture or dislocation.
[2023-06-08 10:40] VITALS: BP 109/72; PULSE 88; RESP 18; TEMP 36.5; O2SAT 100; BMI 20.1
--- NOTE | 2023-06-08 10:52 | XR_ITS ---
WS: [id number] Examination: XR wrist RT w scaphoid [id number] Reason for Exam: trauma pain after injury Date: 06/08/2023 10:59 a.m. Comparison: 06/08/2023, 10:30 a.m. Findings: Single view of the scaphoid is negative for displaced fracture. The bone density is maintained. Impression: No displaced fractures appreciated.
--- NOTE | 2023-06-08 10:53 | W.ED.EXTPRO ---
HPI - Extremity Problem General: Chief complaint: Extremity Injury, Upper Stated complaint: R Wrist injury Time Seen by Provider: 06/08/23 09:54 Source: patient Mode of arrival: ambulatory History of Present Illness: 28-year-old female presents to the emergency room with right wrist injury. She fell while playing with her children last evening she landed on an outstretched right hand she has pain mostly in the ulnar styloid area. No other injuries no previous injuries to that wrist MD Complaint: joint pain Onset (ago): hour(s) Pain Consistency: constant Location: right (wrist) Quality: sharp Relieving factors: nothing Exacerbating factors: nothing Associated symptoms: Deny arthralgias, chest pain, fever(s), myalgias, rash or short of breath Review of Systems Const: Denies: fever(s) Card: Denies: chest pain Musc: Reports: joint pain Skin/Breast: Denies: rash PFS ED PFSH: Medical History delivery delivered Surgical History History of bilateral tubal ligation Status post repeat low transverse section Social History Smoking and tobacco/nicotine status: never used tobacco/nicotine Alcohol intake: unknown Substance/Drug Use: unknown Physical Exam Narrative: EXAM NARRATIVE: Examination and neurovascularly intact on the right hand wrist and fingers. Mild pain with axial loading of the thumb no discomfort at the anatomical snuffbox no deformity no swelling minimal discomfort with palpation over the distal ulnar styloid. Flexion extension at the wrist without significant difficulty circumferential and of the thumb and opposition without difficulty or pain Course Vital Signs: Vital signs: Vital Signs Temperature 97.7 F 06/08/23 10:40 Pulse Rate 88 06/08/23 10:40 Respiratory Rate 18 06/08/23 10:40 Blood Pressure 109/72 06/08/23 10:40 Pulse Oximetry 100 06/08/23 10:40 Oxygen Delivery Me thod Room Air 06/08/23 10:40 MDM - Extremity (Nontraumatic) Medical Decision Making No acute fracture wrist sprain. She was ice rest activity as tolerated anti-inflammatories and follow-up with primary care physician as needed if not improving. Medical Records I reviewed the patient's medical records. Lab Data I reviewed the patient's lab results. All radiology interpretation(s) finalized by discharge Discharge Plan Discharge Patient Disposition: Home Clinical Impression: Sprain of wrist, right Condition: Stable Prescriptions: New diclofenac sodium 75 mg tablet,delayed release (DR/EC) 75 mg PO Q12H PRN (Reason: pain) Qty: 20 0RF Discharge Orders: Discharge ED (Routine); Ordered 06/08/23 Ordered By: Rashad Patel Referrals: Kathryn Rivera MD [Primary Care Provider] - Discharge Diet: Usual diet Discharge Activity: Increase activity as tolerated Patient Instructions: Wrist Sprain (ED), Opioid Safety, Pain Management Activity Restrictions/Additional Instructions: Thank you for choosing [facility] [place] for your healthcare needs today. Please realize this is an emergency room and that we are providing you with a medical screening exam and this may not be complete and all inclusive of all the testing and or work up that you may need to determine your ailment or severity of your illness. It is very important that you follow up as instructed or that you return to the Emergency Department should you have concerns or if your condition changes or worsens in any way. Stand Alone Forms: Work/School Release Coding Level of Care Code ED Beer Cooler for Sandoval Ramirez
== END 2023-06-08 11:39 | disposition home or self-care (01) ==
PROVIDERS: Emergency Provider Family Medicine; PCP Family Medicine
DX: S63.501A Unspecified sprain of right wrist, initial encounter (principal); W19.XXXA Unspecified fall, initial encounter
CPT/HCPCS: 73110; 99283